=== PATIENT | male | born 1935 | race Caucasian/White ===

== ENCOUNTER → 2017-04-25 | Outpatient (CLI) | payer OTHER | LOC: FIMAGING 13:00 | PROVIDERS: ATTEND Internal Medicine Cardiovascular Disease | DX: I48.91 Unspecified atrial fibrillation (principal); Z79.899 Other long term (current) drug therapy; I51.7 Cardiomegaly; Z95.810 Presence of automatic (implantable) cardiac defibrillator ==

== ENCOUNTER → 2017-06-26 | Outpatient (CLI) | payer OTHER | LOC: GIMAGING 11:01 | PROVIDERS: ATTEND Nurse Practitioner | DX: M79.89 Other specified soft tissue disorders (principal) | CPT/HCPCS: 73564-PO ==

== ENCOUNTER → 2018-08-23 | Outpatient (CLI) | payer OTHER | LOC: FIMAGING 15:30 ==